=== PATIENT | male | born 1970 | race Caucasian/White ===

== ENCOUNTER 2019-05-24 19:44 | Emergency (ER) | payer MEDICAID ==
[~2019-05-24] VITALS: Ht 182.9 cm; Wt 81.6 kg
[2019-05-24 19:54] VITALS: BP 158/73
[2019-05-24] MEDS ORDERED: NITROGLYCERIN 0.4 MG TAB SL ONE (19:55)
[2019-05-24 20:10] LABS: BASOPHILS # (AUTO) 0.1 K/uL (0.00-0.22); BASOPHILS % (AUTO) 1.5 % (0.0-2.0); EOSINOPHILS # (AUTO) 0.2 K/uL (0-0.4); EOSINOPHILS % (AUTO) 2.8 % (0.0-4.0); HEMATOCRIT 34.9 % (36-52); HEMOGLOBIN 11.2 g/dL (12.0-18.0); LYMPHOCYTES # (AUTO) 1.7 K/uL (2.0-11.5); LYMPHOCYTES % (AUTO) 25.8 % (20.5-51.1); MEAN CORPUSCULAR HEMOGLOBIN 26 pg (27-31); MEAN CORPUSCULAR HGB CONC 32 g/dL (33-37); MEAN CORPUSCULAR VOLUME 81.1 fL (80-94); MONOCYTES # (AUTO) 0.5 K/uL (0.8-1.0); NEUTROPHILS % (AUTO) 62.9 % (42.2-75.2); PLATELET COUNT (AUTO) 345 K/uL (140-450); RED CELL DISTRIBUTION WIDTH 19.2 % (11.6-13.7); WHITE BLOOD COUNT (AUTO) 6.4 K/uL (4.8-10.8)
[2019-05-24 20:22] LABS: PROTHROMBIN TIME 9.8 secs (10.8-13.4)
[2019-05-24 20:33] LABS: ALBUMIN 3.5 g/dL (3.4-5.0); CARBON DIOXIDE 29.1 mmol/L (21-32); FREE T4 (FREE THYROXINE) 1.18 ng/dL (0.76-1.46); POTASSIUM 3.1 mmol/L (3.5-5.1); THYROID STIMULATING HORMONE 2.26 uIU/mL (0.34-3.74); TOTAL BILIRUBIN 0.4 mg/dL (0.0-1.0)
[2019-05-24] MEDS ORDERED: ACETAMINOPHEN 325 MG TAB PO ONE (21:15)
[2019-05-24] MEDS ORDERED: NACL 0.9% 1,000 ML IV ONE (21:15)
[2019-05-24] MEDS: KETOROLAC 30 MG/ML VIAL IVP ONE ×2 (21:49→21:53)
[2019-05-24] MEDS ORDERED: CEPHALEXIN 500 MG CAP PO ONE (22:35)
[2019-05-24 22:54] VITALS: BP 136/65
== END 2019-05-24 22:55 | disposition home or self-care (01) ==
LOC: MED 19:44
DX: L03.313 Cellulitis of chest wall (principal); Z59.0 Homelessness
CPT/HCPCS: 36415; 71045; 80053; 84439; 84443; 84484; 85025; 85610; 85730; 93005; 99285; J7030; J1885